=== PATIENT | male | born 1975 | race Asian ===

== ENCOUNTER 2020-07-06 00:37 | Emergency (ER) | payer SELFPAY ==
[~2020-07-06] VITALS: Ht 172.7 cm; Wt 59.0 kg
[2020-07-06 00:40] VITALS: BP_SYST 153
--- NOTE | 2020-07-06 00:40 | NUR ---
[facility] up. Report given to JOSE ONEAL.
--- NOTE | 2020-07-06 00:42 | NUR ---
ER at bedside examining patient.
[2020-07-06] MEDS ORDERED: DIPH-TET-PERTUS Vaccine 0.5 ML VIAL (ADACEL) I.M. ONE ×2 (00:45→00:49)
--- NOTE | 2020-07-06 00:56 | NUR ---
Patient given written and verbal discharge instructions and verbalizes understanding. ER MD discussed with patient the results and treatment provided. Patient in stable condition. ID arm band removed. Rx of AUGMENTINgiven. Patient educated on pain management and to follow up with PMD. Pain Scale 5/10. Opportunity for questions provided and answered. Medication side effect fact sheet provided.
[2020-07-06 00:57] VITALS: BP_SYST 150
== END 2020-07-06 00:56 ==
LOC: SED 00:37
DX: S41.052A Open bite of left shoulder, initial encounter (principal); W50.3XXA Accidental bite by another person, initial encounter; Y93.89 Activity, other specified; Y92.89 Other specified places as the place of occurrence of the external cause; Y99.8 Other external cause status
CPT/HCPCS: 90715; 99283